=== PATIENT | male | born 1955 | race Caucasian/White ===

== ENCOUNTER 2016-12-05 03:07 | Inpatient (IN) | payer MEDICAID ==
[~2016-12-05] VITALS: Ht 170.2 cm; Wt 120.0 kg
[2016-12-05] MEDS ORDERED: ALBUTEROL 0.5% (NEB) 2.5 MG/0.5 ML AMP NEB STA (03:29)
[2016-12-05] MEDS ORDERED: IPRATROPIUM (NEB) 0.5 MG/2.5 ML AMP NEB STA (03:29)
[2016-12-05] MEDS ORDERED: ACETAMINOPHEN 500 MG TAB PO STA (03:29)
[2016-12-05] MEDS ORDERED: SODIUM CHLORIDE 0.9% 1L BAG IV* STA (03:29)
[2016-12-05 04:07] LABS: ADD SCAN DIFF NO
[2016-12-05 04:12] LABS: BASOPHILS % 0.2 % (0.0-2.0); EOSINOPHILS % 0.2 % (0.0-7.0); HEMATOCRIT 40.5 % (42.0-52.0); HEMOGLOBIN 13.9 g/dl (14.0-18.0); LYMPHOCYTES # 0.7 10^3/ul (0.8-2.9); MEAN CORPUSCULAR HEMOGLOBIN 32.3 pg (29.0-33.0); MEAN CORPUSCULAR HGB CONC 34.3 g/dl (32.0-37.0); MEAN PLATELET VOLUME 12.4 fl (7.4-10.4); MONOCYTE # 0.7 10^3/ul (0.3-0.9); MONOCYTES % 5.6 % (0.0-11.0); NEUTROPHIL # 11.5 10^3/ul (1.6-7.5); NEUTROPHILS % 88.2 % (39.0-77.0); PLATELET COUNT 127 10^3/UL (140-415); RED BLOOD COUNT 4.31 10^6/ul (4.70-6.10)
--- NOTE | 2016-12-05 04:13 | RADRPT ---
PROCEDURE: Chest. CLINICAL INDICATION: Chest pain. TECHNIQUE: Single frontal view of the chest was obtained. COMPARISON: None. FINDINGS: The cardiac silhouette is within normal limits. The aortic arch is unremarkable. There is left bas ilar infiltrate. There is no vascular congestion or pleural effusion. There is no pneumothorax. IMPRESSION: Left basilar infiltrate. .Brandon Marquez MD, MD Date Time Electronically viewed and signed by .Brandon Marquez MD, on 12/05/2016 04:13 .T/
[2016-12-05 04:23] LABS: ADD UMIC NO; URINE BILIRUBIN (Dip) NEGATIVE (NEGATIVE); URINE BLOOD (Dip) NEGATIVE (NEGATIVE); URINE COLOR LT. YELLOW (YELLOW); URINE GLUCOSE (Dip) NEGATIVE (NEGATIVE); URINE KETONES (Dip) NEGATIVE (NEGATIVE); URINE LEUKOCYTE ESTERASE (Dip) NEGATIVE (NEGATIVE); URINE NITRITE (Dip) NEGATIVE (NEGATIVE); URINE TOTAL PROTEIN (Dip) NEGATIVE (NEGATIVE); URINE UROBILINOGEN (Dip) 0.2 E.U./dL (0.1-1.0)
[2016-12-05] MEDS ORDERED: AZITHROMYCIN 500MG/NS (PMX) 250 ML IV STA (04:25)
[2016-12-05] MEDS ORDERED: CEFTRIAXONE 1 GM/50 ML (PMX) 50 ML IVPB STA (04:25)
[2016-12-05 04:26] LABS: INR 0.99; PARTIAL THROMBOPLASTIN TIME 25.1 Sec (25.0-35.0); PROTIME 13.1 Sec (12.2-14.2)
[2016-12-05 04:28] LABS: ALBUMIN 4.5 g/dl (3.3-4.9); ALBUMIN/GLOBULIN RATIO 1.95; BILIRUBIN,INDIRECT 0.6 mg/dl (0-1.1); BILIRUBIN,TOTAL 0.6 mg/dl (0.2-1.3); CREATININE 1.48 mg/dl (0.61-1.24); POTASSIUM 4.9 mmol/L (3.5-5.1); TOTAL PROTEIN 6.8 g/dl (6.1-8.1)
[2016-12-05] MEDS ORDERED: SOD CHLORIDE 0.9% 1,000 ML IV SCH (04:35)
[2016-12-05 04:39] LABS: TROPONIN-I 0.039 ng/ml (0.00-0.12)
--- NOTE | 2016-12-05 04:41 | ERA ---
ER Documentation Chief Complaint Date/Time DATE: 12/05/16 TIME: 04:36 Chief Complaint syncopal episode, fever HPI This 61-year-old male presents to the emergency room for evaluation of fever, chills, and mild shortness of breath. According to patient's family members this patient almost fainted at home. The patient is denying any cough and denies any sick contacts. The patient denies any headaches or blurred vision or chest pain and was brought to the emergency room for further evaluation. ROS All systems reviewed and are negative except as per history of present illness. Allergies Allergies: Coded Allergies: No Known Allergy (Unverified , 12/05/16) PMhx/Soc Hx Cardiac Disorders: Yes (HTN) Hx Alcohol Use: No Hx Substance Use: No Hx Tobacco Use: No Smoking Status: Never smoker Physical Exam Vitals Vital Signs Date Time Temp Pulse Resp B/P Pulse Ox O2 Delivery O2 Flow Rate FiO2 12/05/16 04:30 99.2 103 30 102/52 96 Nasal Cannula 12/05/16 03:55 Nasal Cannula 2 12/05/16 03:45 95 4.0 12/05/16 03:44 116 22 95 Nasal Cannula 4.0 12/05/16 03:15 103.0 127 18 99/56 88 12/05/16 03:15 102.4 124 40 106/54 90 Physical Exam INITIAL VITAL SIGNS: Reviewed by me GENERAL: The patient is well developed and appropriate for usual state of health in no apparent distress, warm to touch HEENT: Dry mucous membranes pupils equal, round, and reactive to light. EOMI. There is no scleral icterus. NECK: C-spine is soft and supple, there is no meningismus. There is no cervical lymphadenopathy. LUNGS: Diminished bilaterally. There are no rales, wheezes or rhonchi. HEART: Tachycardic, no murmurs, clicks, rubs or gallops. ABDOMEN: Soft, non-tender, non-distended. There are bowel sounds in all four quadrants. No rebound or guarding. EXTREMITIES: There is no peripheral cyanosis or edema. No focal swelling or erythema. NEUROLOGICAL: The patient moves all four extremities with 5/5 strength. Cranial nerves II - XII are intact. Normal gait. Alert and oriented SKIN: There is no apparent rash or petechiae. HEME/LYMPHATIC: There is no evidence of excessive bruising or lymphedema. PSYCHIATRIC: The patient does not appear anxious or depressed. Result Diagram: 12/05/16 0345 12/05/16 0345 Results 24 hrs Laboratory Tests Test 12/05/16 03:45 12/05/16 03:55 White Blood Count 13.010^3/ul Red Blood Count 4.3110^6/ul Hemoglobin 13.9g/dl Hematocrit 40.5% Mean Corpuscular Volume 94.0fl Mean Corpuscular Hemoglobin 32.3pg Mean Corpuscular Hemoglobin Concent 34.3g/dl Red Cell Distribution Width 12.0% Platelet Count 91779^3/UL Mean Platelet Volume 12.4fl Neutrophils % 88.2% Lymphocytes % 5.0% Monocytes % 5.6% Eosinophils % 0.2% Basophils % 0.2% Nucleated Red Blood Cells % 0.0/100WBC Neutrophils # 11.510^3/ul Lymphocytes # 0.710^3/ul Monocytes # 0.710^3/ul Eosinophils # 0.010^3/ul Basophils # 0.010^3/ul Nucleated Red Blood Cells # 0.010^3/ul Prothrombin Time 13.1Sec Prothrombin Time Ratio 1.0 INR International Normalized Ratio 0.99 Activated Partial Thromboplast Time 25.1Sec Sodium Level 140mmol/L Potassium Level 4.9mmol/L Chloride Level 105mmol/L Carbon Dioxide Level 25mmol/L Anion Gap 15 Blood Urea Nitrogen 40mg/dl Creatinine 1.48mg/dl Glucose Level 112mg/dl Lactic Acid Level 1.9mmol/L Calcium Level 9.0mg/dl Total Bilirubin 0.6mg/dl Direct Bilirubin 0.00mg/dl Indirect Bilirubin 0.6mg/dl Aspartate Amino Transf (AST/SGOT) 23IU/L Alanine Aminotransferase (ALT/SGPT) 28IU/L Alkaline Phosphatase 55IU/L Troponin I Pending Total Protein 6.8g/dl Albumin 4.5g/dl Globulin 2.30g/dl Albumin/Globulin Ratio 1.95 Urine Color LT. YELLOW Urine Clarity CLEAR Urine pH 5.5 Urine Specific [place] 1.020 Urine Ketones NEGATIVE Urine Nitrite NEGATIVE Urine Bilirubin NEGATIVE Urine Urobilinogen 0.2 E.U./dL Urine Leukocyte Esterase NEGATIVE Urine Hemoglobin NEGATIVE Urine Glucose NEGATIVE% Urine Total Protein NEGATIVE Current Medications Medications (Trade) Dose Ordered Sig/Aleksey Route PRN Reason Start Time Stop Time Status Last Admin Dose Admin Sodium Chloride (NS) 3,730 ml BOLUS OVER 2 HOURS STAT IV* 12/05/16 03:29 12/05/16 03:32 DC 12/05/16 04:07 Acetaminophen (Tylenol Tab) 1,000 mg ONCE STAT PO 12/05/16 03:29 12/05/16 03:32 DC 12/05/16 04:07 Albuterol (Proventil 0.5% (Neb)) 10 mg ONCE STAT NEB 12/05/16 03:29 12/05/16 03:32 DC 12/05/16 03:39 Ipratropium [place] 0.5 mg 0.5 mg ONCE STAT NEB 12/05/16 03:29 12/05/16 03:32 DC 12/05/16 03:39 Ceftriaxone Sodium 50 ml @ 100 mls/hr ONCE STAT IVPB 12/05/16 04:25 12/05/16 04:54 Azithromycin (Zithromax 500mg/ NS (Pmx)) 250 ml @ 250 mls/hr ONCE STAT IV 12/05/16 04:25 12/05/16 05:24 Procedures/MDM EKG: Rate/Rhythm: Sinus tachycardia QRS, ST, T-waves: [No changes consistent w/ acute ischemia] Impression: [No evidence of ischemia or arrhythmia] Chest X-ray 1V Interpreted by me: Soft Tissue: Left lobe pneumonia Bones: No acute abnormalities Mediastinum/Cardiac Silhouette/Lungs: [No acute abnormalities] This 61-year-old male presents to the emergency room for evaluation of fever, and mild shortness of breath. When I evaluated him he was warm to the touch and tachycardic. His pulse ox is 92% on 2 L. I did start a septic workup on this patient which did reveal leukocytosis and x-ray does show a left lobe pneumonia. This patient was given 30 cc/kg of IV normal saline. He was started on azithromycin and Rocephin for community-acquired coverage. He will be placed in for admission at this time on her Medr floor as he is hemodynamically stable with a mean arterial pressure greater than 65. The patient will be admitted under the care of her panel physician Dr. bolden Critical Care: Excluding all billable procedures Time: 38 minutes Treatments/Evaluations: Close monitoring and treatment of unstable vital signs, cardiorespiratory, and neurologic status, while maintaining tight balance of fluid, respiratory, and cardiac interventions. Departure Diagnosis: Primary Impression: Sepsis Additional Impressions: Left lower lobe pneumonia Renal insufficiency Condition: Stable STACIE JAUREGUI DO Dec 05, 2016 04:41
[2016-12-05] MEDS ORDERED: OMEG1CAP2 PO (04:42)
[2016-12-05] MEDS ORDERED: LISI20TA11 PO (04:42)
[2016-12-05] MEDS ORDERED: IBUP800T25 PO (04:42)
[2016-12-05] MEDS ORDERED: DOCUSATE SODIUM 100 MG CAP PO PRN (05:00)
[2016-12-05] MEDS ORDERED: ONDANSETRON 4 MG INJ IV PRN ×2 (05:00)
[2016-12-05] MEDS ORDERED: ACETAMINOPHEN 325 MG TAB PO PRN ×2 (05:00)
[2016-12-05] MEDS ORDERED: BISACODYL (EC) 5 MG TAB PO PRN (05:00)
[2016-12-05] MEDS ORDERED: NACL 0.9% 3 ML SYG IV SCH (05:00)
--- NOTE | 2016-12-05 05:07 | HP ---
Date/Time of Note Date/Time of Note DATE: 12/05/16 TIME: 05:03 Assessment/Plan VTE Prophylaxis VTE Prophylaxis Intervention: SCD's Assessment/Plan Chief Complaint/Hosp Course This is a 61-year-old male being admitted to the [facility] floor for: #1 Sepsis: Fever of 102, tachycardia, tachypnea, leukocytosis of 13 and source of pneumonia. The current time provide patient with IV fluid hydration. Supplemental O2 to keep oxygenation above 92%. Tylenol for fevers. On IV ceftriaxone and azithromycin for community-acquired pneumonia. #2 community-acquired pneumonia: Chest x-ray shows left basilar infiltrate. IV ceftriaxone and azithromycin every 24 hours. Supplemental O2 support as indicated. #3 acute kidney injury: Creatinine of 1.48 there is no previous value available. Will provide IV fluid hydration and continue to monitor. #4 hypertension: Continue home lisinopril. #5 morbid obesity: We will check a hemoglobin A1c and lipid profile, tsh. #6 DVT and GI prophylaxis: SCDs, famotidine Further treatment strategy will be implemented as per the clinical course. Problems: HPI/ROS Admit Date/Time Admit Date/Time 12/05/16 Hx of Present Illness Chief complaint: Fevers chills and shortness of breath This 61-year-old male presents to the emergency room for evaluation of fever, chills, and mild shortness of breath. According to patient's family members this patient almost fainted at home. He states though that he went to school last night and after coming home he just felt really tired. Then started experiencing the chills and his son states that he felt hot. The patient is denying any cough and denies any sick contacts. The patient denies any headaches or blurred vision or chest pain and was brought to the emergency room for further evaluation. Allergies: NKDA Medications: Lisinopril ROS Const: As per HPI Eyes : No pain discharge or redness or change in visual acuity ENT: No pain, sore throat, congestion, congestion, dysphagia or discharge Respiratory: As per Hpi Cardiovascular: Denies any chest pain or shortness of breath GI : no change in appetite, abdominal pain, nausea, vomiting, diarrhea, constipation, or change in the color his stool Genitourinary: No dysuria, hematuria, flank pain , discharge or CVA tenderness Musculoskeletal: No joint pain, back pain, neck pain, restricted range of motion in neck or joints Skin: No rash, bruising or hives Neuro: No headache, dizziness, syncope, seizure, focal weakness Endocrine: No polyuria, polydipsia, temperature intolerance Psych: No hallucination, depression, anxiety or suicidal ideation PMH/Family/Social Past Medical History Hypertension Past Surgical History Past Surgical Hx: no surgical history Family History Significant Family History: no pertinent family hx Social History Alcohol Use: none Smoking Status: Never smoker Drug Use: none Exam/Review of Systems Vital Signs Vitals Vital Signs Date Time Temp Pulse Resp B/P Pulse Ox O2 Delivery O2 Flow Rate FiO2 12/05/16 04:30 99.2 103 30 102/52 96 Nasal Cannula 12/05/16 03:55 2 Exam Exam General: Patient is an obese male with mildly tachypneic but in no overt respiratory distress. HEENT: Atraumatic, normocephalic. The pupils are equal, round and reactive. Extraocular motor are intact Neck: Supple with full range of motion. No rigidity or meningismus Chest: Nontender Lungs: Clear to auscultation bilaterally no crackles rales or wheezing, mild tachypnea but no use of accessory accessory respiratory muscles Heart: Normal S1-S2, Regular rhythm and rate. No murmur, S3, or S4 Abdomen: Soft , nontender, nondistended , bowel sounds are present. No guarding no rebound tenderness , Extremities: Normal to inspection, no edema no cyanosis Neurologic: Normal mental status, speech normal, cranial nerves II through XII are intact, motor and sensory are intact, no focal weakness Additional Comments EKG: Rate/Rhythm: Sinus tachycardia QRS, ST, T-waves: [No changes consistent w/ acute ischemia] As per ED physician documentation PROCEDURE: Chest. CLINICAL INDICATION: Chest pain. TECHNIQUE: Single frontal view of the chest was obtained. COMPARISON: None. FINDINGS: The cardiac silhouette is within normal limits. The aortic arch is unremarkable. There is left basilar infiltrate. There is no vascular congestion or pleural effusion. There is no pneumothorax. IMPRESSION: Left basilar infiltrate. .Brandon Marquez MD, Date Time Electronically viewed and signed by .Brandon Marquez MD, MD on 12/05/2016 04:13 Labs Result Diagram: 12/05/16 0345 12/05/16 0345 Medications Medications Current Medications Sodium Chloride 1,000 ml @ 80 mls/hr [id number] IV ; Start 12/05/16 at 04:35; Stop 12/05/16 at 17:04 Sodium Chloride (NS) 1,000 ml @ 70 mls/hr [id number] IV ; Start 12/05/16 at 04:55; Status UNV Ondansetron HCl (Zofran Inj) 4 mg Q6H PRN IV NAUSEA AND/OR VOMITING; Start 12/05 at 05:00; Status UNV Acetaminophen (Tylenol Tab) 650 mg Q6H PRN PO PAIN LEVEL 1-3 OR FEVER; Start at 05:00; Status UNV Docusate Sodium (Colace) 100 mg Q12H PRN PO CONSTIPATION; Start 12/05/16 at 05: 00; Status UNV Bisacodyl (Dulcolax) 5 mg DAILY PRN PO CONSTIPATION; Start 12/05/16 at 05:00; Status UNV Famotidine (Pepcid Iv) 20 mg Q12 IV ; Start 12/05/16 at 09:00; Status UNV Lisinopril (Zestril) 20 mg DAILY PO ; Start 12/05/16 at 09:00; Status UNV GEORGINA JOSE Dec 05, 2016 05:07
[2016-12-05 07:37] LABS: CHOL/HDL RATIO 4.1 RATIO
[2016-12-05] MEDS ORDERED: LISINOPRIL 20 MG TAB PO SCH (09:00)
[2016-12-05] MEDS ORDERED: FAMOTIDINE 20 MG INJ IV SCH (09:00)
[2016-12-05] MEDS: SOD CHLORIDE 0.9% 1,000 ML IV SCH ×2 (10:10→19:24)
[2016-12-05 10:54] VITALS: TEMP 99.7
[2016-12-05] MEDS: ALBUTEROL/IPRATROPIUM (NEB) 3 ML AMP HHN SCH ×3 (13:00→20:42)
[2016-12-05 13:02] VITALS: PULSE 82
--- NOTE | 2016-12-05 13:04 | PN ---
Date/Time of Note Date/Time of Note DATE: 12/05/16 TIME: 13:02 Assessment/Plan VTE Prophylaxis VTE Prophylaxis Intervention: heparin, SCD's Assessment/Plan Assessment/Plan 61 yo M with pmhx asthma v chronic bronchitis presented with fevers, SOB. Lung imaging with pulm infiltrate consistent with CAP #CAP with resultant sepsis: -cont ceftriaxone/aztithro -check sputum culture, check strep urine Ag, check RVP #h/o asthma v chronic bronchitis -scheduled nebs #elevated Cr: ?KA[facility] (no baseline on file) -cont IVFs, hold acei #preDM: low fat diet #?hyperthyroid?: TSH low, check ft4 #prophx: SQH dispo: pending weaning of supplemental O2, improvement in resp status Subjective 24 Hr Interval Summary Free Text/Dictation Pt still in the ER, seen with his 2 children. Per family, pt already doing better. Pt with h/o asthma/bronchitis but is lifelong nonsmoker. Exam/Review of Systems Vital Signs Vitals Vital Signs Date Time Temp Pulse Resp B/P Pulse Ox O2 Delivery O2 Flow Rate FiO2 12/05/16 10:54 99.7 94 12/05/16 08:30 30 100/67 96 2.0 12/05/16 06:30 Nasal Cannula Exam nad, sitting up in bed wearing nc no mrg +scattered end exp wheezes michelle in upper lung [place] obese no rashes Results Result Diagram: 12/05/16 0345 12/05/16 0345 Results 24 hrs Laboratory Tests Test 12/05/16 03:45 12/05/16 03:55 12/05/16 05:15 12/05/16 07:29 White Blood Count 13.0 H Red Blood Count 4.31 L Hemoglobin 13.9 L Hematocrit 40.5 L Mean Corpuscular Volume 94.0 Mean Corpuscular Hemoglobin 32.3 Mean Corpuscular Hemoglobin Concent 34.3 Red Cell Distribution Width 12.0 Platelet Count 127 L Mean Platelet Volume 12.4 H Neutrophils % 88.2 H Lymphocytes % 5.0 L Monocytes % 5.6 Eosinophils % 0.2 Basophils % 0.2 Nucleated Red Blood Cells % 0.0 Neutrophils # 11.5 H Lymphocytes # 0.7 L Monocytes # 0.7 Eosinophils # 0.0 Basophils # 0.0 Nucleated Red Blood Cells # 0.0 Prothrombin Time 13.1 Prothrombin Time Ratio 1.0 INR International Normalized Ratio 0.99 Activated Partial Thromboplast Time 25.1 Sodium Level 140 Potassium Level 4.9 Chloride Level 105 Carbon Dioxide Level 25 Anion Gap 15 Blood Urea Nitrogen 40 H Creatinine 1.48 H Glucose Level 112 Lactic Acid Level 1.9 0.8 3.1 H Calcium Level 9.0 Total Bilirubin 0.6 Direct Bilirubin 0.00 Indirect Bilirubin 0.6 Aspartate Amino Transf (AST/SGOT) 23 Alanine Aminotransferase (ALT/SGPT) 28 Alkaline Phosphatase 55 Troponin I 0.039 Total Protein 6.8 Albumin 4.5 Globulin 2.30 Albumin/Globulin Ratio 1.95 Urine Color LT. YELLOW Urine Clarity CLEAR Urine pH 5.5 Urine Specific [place] 1.020 Urine Ketones NEGATIVE Urine Nitrite NEGATIVE Urine Bilirubin NEGATIVE Urine Urobilinogen 0.2 E.U./dL Urine Leukocyte Esterase NEGATIVE Urine Hemoglobin NEGATIVE Urine Glucose NEGATIVE Urine Total Protein NEGATIVE Hemoglobin A1c 6.2 H Triglycerides Level 82 Cholesterol Level 137 LDL Cholesterol, Calculated 88 HDL Cholesterol 33 Cholesterol/HDL Ratio 4.1 Thyroid Stimulating Hormone (TSH) 0.192 L Medications Medications Current Medications Sodium Chloride (NS) 1,000 ml @ 70 mls/hr [id number] IV Last administered on 10:10; Admin Dose 70 MLS/HR; Start 12/05/16 at 04:55 Ondansetron HCl (Zofran Inj) 4 mg Q6H PRN IV NAUSEA AND/OR VOMITING; Start 12/05 at 05:00 Acetaminophen (Tylenol Tab) 650 mg Q6H PRN PO PAIN LEVEL 1-3 OR FEVER Last administered on 12/05/16 10:24; Admin Dose 650 MG; Start 12/05/16 at 05:00 Docusate Sodium (Colace) 100 mg Q12H PRN PO CONSTIPATION; Start 12/05/16 at 05: 00 Bisacodyl (Dulcolax) 5 mg DAILY PRN PO CONSTIPATION; Start 12/05/16 at 05:00 Famotidine (Pepcid Iv) 20 mg Q12 IV Last administered on 12/05/16 10:09; Admin Dose 20 MG; Start 12/05/16 at 09:00 Lisinopril 20 mg 20 mg DAILY PO ; Start 12/05/16 at 09:00 Ceftriaxone Sodium 50 ml @ 100 mls/hr Q24H IVPB ; Start 12/06/16 at 05:00 Azithromycin (Zithromax 500mg/ NS (Pmx)) 250 ml @ 250 mls/hr Q24H IVPB ; Start 12/06/16 at 06:00 Procedures Procedures sputum culture ordered TSH low a1c 6.2 HARRIS MCFADDEN MD Dec 05, 2016 13:04
[2016-12-05] MEDS ORDERED: NACL 3% FOR INHALATION 15 ML NEBU NEB ONE (13:30)
[2016-12-05 13:44] VITALS: Ht 170.2 cm; Wt 120.0 kg
[2016-12-05] MEDS: HEPARIN 5,000 UNIT/0.5 ML VIAL SC SCH ×2 (15:13→21:03)
[2016-12-05 22:34] VITALS: BP 120/57; RESP 18
[2016-12-06] MEDS: ALBUTEROL/IPRATROPIUM (NEB) 3 ML AMP HHN SCH ×4 (00:29→12:57)
[2016-12-06] MEDS ORDERED: CEFTRIAXONE 1 GM/50 ML (PMX) 50 ML IVPB SCH (05:00)
[2016-12-06] MEDS: HEPARIN 5,000 UNIT/0.5 ML VIAL SC SCH ×2 (05:03→13:58)
[2016-12-06] MEDS ORDERED: AZITHROMYCIN 500MG/NS (PMX) 250 ML IVPB SCH (06:00)
[2016-12-06 06:04] LABS: ADD SCAN DIFF NO
[2016-12-06 06:14] LABS: BASOPHILS % 0.2 % (0.0-2.0); EOSINOPHILS # 0.2 10^3/ul (0.0-0.5); EOSINOPHILS % 1.4 % (0.0-7.0); HEMATOCRIT 37.2 % (42.0-52.0); HEMOGLOBIN 12.3 g/dl (14.0-18.0); LYMPHOCYTES # 1.8 10^3/ul (0.8-2.9); LYMPHOCYTES % 12.6 % (15.0-51.0); MEAN CORPUSCULAR HEMOGLOBIN 31.7 pg (29.0-33.0); MEAN CORPUSCULAR HGB CONC 33.1 g/dl (32.0-37.0); MEAN CORPUSCULAR VOLUME 95.9 fl (82.0-101.0); MEAN PLATELET VOLUME 12.4 fl (7.4-10.4); MONOCYTE # 1.2 10^3/ul (0.3-0.9); MONOCYTES % 8.4 % (0.0-11.0); NEUTROPHIL # 11.2 10^3/ul (1.6-7.5); NEUTROPHILS % 76.6 % (39.0-77.0); PLATELET COUNT 104 10^3/UL (140-415); RED BLOOD COUNT 3.88 10^6/ul (4.70-6.10); RED CELL DISTRIBUTION WIDTH 12.5 % (11.5-14.5); WHITE BLOOD COUNT 14.6 10^3/ul (4.8-10.8)
[2016-12-06 06:43] LABS: CALCIUM 7.9 mg/dl (8.4-10.2); CREATININE 0.77 mg/dl (0.61-1.24); POTASSIUM 4.2 mmol/L (3.5-5.1)
[2016-12-06] MEDS: SOD CHLORIDE 0.9% 1,000 ML IV SCH (07:21)
[2016-12-06 07:40] VITALS: BP 101/49; RESP 20
[2016-12-06] MEDS ORDERED: AZITHROMYCIN 250 MG TAB PO SCH ×2 (09:00)
[2016-12-06] MEDS ORDERED: [UNRECOGNIZED DRUG - CODE] MC (15:01)
[2016-12-06] MEDS ORDERED: LEVO750T8 PO ×3 (15:03→15:27)
--- NOTE | 2016-12-06 15:05 | PDOCDIS ---
Discharge Instructions DIAGNOSIS Discharge Diagnosis: community aquired pneumonia CONDITION Patient Condition: Good HOME CARE INSTRUCTIONS: Diet Instructions: Low Fat /CholesterolSpecial Diet: low cholesterol ACTIVITY: Activity Restrictions: Slowly Increase Activity FOLLOW UP/APPOINTMENTS Appointments Follow up with your regular doctor at the end of the week to follow up on your blood pressure and breathing Check your blood pressure once daily and record the results Please also review your thyroid blood test results with your regular doctor SCHOOL/WORK RELEASE May return to School/Work on: Dec 09, 2016 May return to School/Work with: No Restrictions HARRIS MCFADDEN MD Dec 06, 2016 15:05
--- NOTE | 2016-12-06 15:15 | DS ---
Date/Time of Note Date/Time of Note DATE: 12/06/16 TIME: 15:07 Discharge Summary Admission/Discharge Info Admit Date/Time Dec 05, 2016 at 13:18 Discharge Date/Time Final Diagnosis community acquired pneumonia, acute kidney injury, subclinical hyperthyroid Patient Condition: Good Consults none Procedures CXR 6.3 LLL infiltrate Cr on admission 1.48-->Cr on discharge 0.7 TSH 0.192 (low), free t4 1.05 (within normal limits) lipids TC 137, LDL 88, TG 82, HDL 35 Hx of Present Illness This 61-year-old male presents to the emergency room for evaluation of fever, chills, and mild shortness of breath. According to patient's family members this patient almost fainted at home. He states though that he went to school last night and after coming home he just felt really tired. Then started experiencing the chills and his son states that he felt hot. The patient is denying any cough and denies any sick contacts. The patient denies any headaches or blurred vision or chest pain and was brought to the emergency room for further evaluation. Hospital Course 61 yo M with pmhx asmtha presented with fevers, SOB, hypoxia, found to have LLL infiltrate. Clinical scenario consistent with community acquired pneumonia. Pt started on ceftriaxone azithro and respiratory status returned to baseline by date of discharge. Pt converted to PO levoflox for an additonal 6 days of therapy. An EKG was checked prior to discharge and QTc was wnl. Admission labs also notable for Cr elevated to 1.5. Home NSAIDs and ACEI were held, IVFs started. By date of discharge Cr had normalized. BP <150/90 off of antihypertensives. Pt rx'ed home BP cuff , advised to check BPs daily and bring results to PCP later this week. Admit labs also notable for slightly low TSH with nl t4, specific values noted above. Pt advised to bring these test results to PCP for repeat testing/further eval of subclinical hyperthyroid. Lipids assessed on admission, Results as above. Pt advised to discuss consideration for statin with PCP. Changes from admit meds STOPPED ACEI/NSAIDs NEW MED; LEVOFLOX 750 PO Q DAY x 6 additional days RX for BP cuff Home Meds Active Scripts Levofloxacin* (Levofloxacin*) 750 Mg Tablet, 750 MG PO DAILY for 6 Days, #6 TAB 0 Refills Prov:STOLAR,HARRIS MD 12/06/16 Blood Pressure Test Kit-Medium (BLOOD PRESSURE CUFF MONITOR) 1 Each Kit, 1 EACH , #1 Prov:HARRIS MCFADDEN MD 12/06/16 Reported Medications [place]-3 Acid Ethyl Esters (Lovaza) Unknown Strength Capsule, 0 PO DAILY, CAP 12/05/16 Discontinued Reported Medications Ibuprofen* (Ibuprofen*) 800 Mg Tab, 800 MG PO TID, TAB 12/05/16 Lisinopril* (Lisinopril*) 20 Mg Tablet, 20 MG PO DAILY, #30 TAB 12/05/16 Follow-up Plan Follow up with PCP within 7 days for BP check, repeat ChemP and discussion of TFTs Primary Care Provider Care Physician No Primary Time spent on discharge: > 30 minutes Pending Labs Laboratory Tests Test 12/05/16 15:24 12/06/16 05:37 Lactic Acid Level 2.2mmol/L (0.5-2.2) White Blood Count 14.610^3/ul (4.8-10.8) Red Blood Count 3.8810^6/ul (4.70-6.10) Hemoglobin 12.3g/dl (14.0-18.0) Hematocrit 37.2% (42.0-52.0) Mean Corpuscular Volume 95.9fl (82.0-101.0) Mean Corpuscular Hemoglobin 31.7pg (29.0-33.0) Mean Corpuscular Hemoglobin Concent 33.1g/dl (32.0-37.0) Red Cell Distribution Width 12.5% (11.5-14.5) Platelet Count 11652^3/UL (140-415) Mean Platelet Volume 12.4fl (7.4-10.4) Neutrophils % 76.6% (39.0-77.0) Lymphocytes % 12.6% (15.0-51.0) Monocytes % 8.4% (0.0-11.0) Eosinophils % 1.4% (0.0-7.0) Basophils % 0.2% (0.0-2.0) Nucleated Red Blood Cells % 0.0/100WBC (0.0-0.0) Neutrophils # 11.210^3/ul (1.6-7.5) Lymphocytes # 1.810^3/ul (0.8-2.9) Monocytes # 1.210^3/ul (0.3-0.9) Eosinophils # 0.210^3/ul (0.0-0.5) Basophils # 0.010^3/ul (0.0-0.1) Nucleated Red Blood Cells # 0.010^3/ul (0.0-0.0) Sodium Level 139mmol/L (135-144) Potassium Level 4.2mmol/L (3.5-5.1) Chloride Level 107mmol/L (97-110) Carbon Dioxide Level 25mmol/L (21-31) Anion Gap 11 (8-16) Blood Urea Nitrogen 21mg/dl (7-20) Creatinine 0.77mg/dl (0.61-1.24) Glucose Level 123mg/dl (70-220) Calcium Level 7.9mg/dl (8.4-10.2) Magnesium Level 2.1mg/dl (1.7-2.5) HARRIS MCFADDEN MD Dec 06, 2016 15:15
--- NOTE | 2016-12-06 23:45 | RADRPT ---
Vent Rate: 69 bpm RR Interval: 0 msec CA Interval: 132 msec QRS Duration: 100 msec QT Interval: 370 msec QTC Interval: 396 msec P-R-T [place]: 54 - -13 - 10 degrees Sinus rhythm with premature supraventricular complexes Abnormal ECG Electronically Signed By: Brice Mueller [id number]
== END 2016-12-06 15:58 | disposition home or self-care (01) | DRG 871 ==
LOC: E/R 03:07 → PP2 13:18
PROVIDERS: ADMIT Family Medicine; ATTEND Family Medicine
DX: A41.9 Sepsis, unspecified organism (principal); J18.9 Pneumonia, unspecified organism; N17.9 Acute kidney failure, unspecified; Z68.41 Body mass index [BMI] 40.0-44.9, adult; E05.90 Thyrotoxicosis, unspecified without thyrotoxic crisis or storm; I10 Essential (primary) hypertension; E66.01 Morbid (severe) obesity due to excess calories; J45.909 Unspecified asthma, uncomplicated
CPT/HCPCS: 36415; 71010; 80048; 80053; 80061; 81003; 83036; 83605; 83735; 84439; 84443; 84484; 85025; 85610; 85730; 86403; 87040; 87070; 87086; 87275; 87276; 87279; 87280; 93005; 94640; 94644; 94664; 96374; 96375; J0456; J0696; J1644; J7030